=== PATIENT | male | born 1990 | race African-American/Black ===

== ENCOUNTER 2023-09-22 04:27 | Inpatient (IN) | payer OTHER ==
[2023-09-22] VITALS (21 sets, daily range): BP systolic 140–185; BP diastolic 98–130; PULSE 95–112; RESP 13–30; TEMP 98.2; O2SAT 95–98
[~2023-09-22] VITALS: Ht 165.1 cm; Wt 77.1 kg
[2023-09-22 05:41] LABS: CHLORIDE 106 mEq/L (98-107); POTASSIUM 3.8 mEq/L (3.5-5.1); SODIUM 139 mEq/L (136-145)
[2023-09-22 05:42] LABS: CARBON DIOXIDE 24 mEq/L (21-32)
[2023-09-22 05:43] LABS: CALCIUM 9.1 mg/dL (8.7-10.4)
[2023-09-22] MEDS: IPRATROPIUM/ALBUTEROL 0.5-3(2.5)MG/3ML NEB HHN ONE (05:43)
[2023-09-22] MEDS: PREDNISONE 20MG TABLET PO ONE (05:44)
[2023-09-22 05:47] LABS: BASOPHILS % 0.6 % (0.0-2.0); EOSINOPHILS % 0.6 % (0.0-5.0); HEMATOCRIT. 47.7 % (42.0-52.0); MEAN CORPUSCULAR HEMOGLOBIN 28.9 pg (28.0-32.0); MEAN CORPUSCULAR HGB CONC 33.4 g/dL (31.0-37.0); MEAN CORPUSCULAR VOLUME 86.5 fL (80.0-94.0); MEAN PLATELET VOLUME 9.6 fl (7.4-10.4); MONOCYTES % 7.4 % (2.0-8.0); NEUTROPHILS % 79.4 % (40.0-76.0); PLATELET 289 x1000/uL (130-400); RED BLOOD CELL COUNT 5.52 mill/uL (4.7-6.1); WHITE BLOOD COUNT 9.6 x1000/uL (4.5-11.0)
[2023-09-22 05:48] LABS: CREATININE 2.5 mg/dL (0.6-1.3); GLUCOSE 103 mg/dL (70-105); UREA NITROGEN BLOOD 18 mg/dL (9-23)
[2023-09-22 05:50] LABS: TROPONIN I HIGH SENSITIVITY 83 ng/L (3.0-53)
[2023-09-22] MEDS: HYDRALAZINE 20MG/ML VIAL IV ONE (06:48)
[2023-09-22] MEDS: ALBUTEROL (0.083%) 2.5MG/3ML NEB HHN ONE (07:42)
[2023-09-22 09:11] LABS: TROPONIN I HIGH SENSITIVITY 80 ng/L (3.0-53)
[2023-09-22] MEDS: LABETALOL 5MG/ML 4ML INJ IV ONE (09:18)
[2023-09-22] MEDS: NITROGLYCERIN 0.4MG TABLET SL SL ONE (09:36)
[2023-09-22] MEDS ORDERED: NITROGLYCERIN 50MG PREMIX 250 ML IV ONE (10:30)
[2023-09-22] MEDS: NITROGLYCERIN 50MG PREMIX 250 ML IV ONE (10:52)
[2023-09-22] MEDS ORDERED: ONDANSETRON HCL 4MG/2ML INJ IV PRN (15:15)
[2023-09-22] MEDS ORDERED: ACETAMINOPHEN 650MG/20.3ML UDC PO PRN (15:15)
[2023-09-22] MEDS ORDERED: DOCUSATE SODIUM 250MG CAPSULE PO PRN (15:15)
[2023-09-22] MEDS: AMLODIPINE 10MG TABLET PO SCH (16:11)
[2023-09-22] MEDS: IPRATROPIUM/ALBUTEROL 0.5-3(2.5)MG/3ML NEB HHN SCH (16:42)
[2023-09-22] MEDS: NITROGLYCERIN 50MG PREMIX 250 ML IV PRN (18:18)
[2023-09-22] MEDS ORDERED: METOPROLOL SUCCINATE 50MG ER TABLET PO SCH ×2 (22:00)
[2023-09-22] MEDS ORDERED: HYDRALAZINE HCL 100MG TABLET PO SCH (22:00)
[2023-09-23] MEDS ORDERED: PANTOPRAZOLE SODIUM 40 MG/VIAL IV SCH (09:00)
== END 2023-09-22 22:00 | disposition left against medical advice (07) | DRG 141 ==
LOC: ER 04:27 → EDBEDREQ 07:25 → EDBEDREQSVC 10:20 → MICUNO 10:21 → EDBEDREQTM 10:26
PROVIDERS: ADMIT Internal Medicine; ATTEND Internal Medicine
DX: J45.901 Unspecified asthma with (acute) exacerbation (principal); N17.0 Acute kidney failure with tubular necrosis; I16.0 Hypertensive urgency; Z53.29 Procedure and treatment not carried out because of patient's decision for other reasons; Z91.148 Patient's other noncompliance with medication regimen for other reason; I50.9 Heart failure, unspecified; I11.0 Hypertensive heart disease with heart failure
CPT/HCPCS: 36415; 71045; 80048; 84484; 85025; 93005; 94640; 99291; J0360; J3490; J7512

== ENCOUNTER 2024-02-03 20:46 | Inpatient (IN) | payer OTHER ==
[~2024-02-03] VITALS: Ht 167.6 cm; Wt 89.9 kg
[2024-02-03] MEDS: HYDROCODONE/ACETAMINOPHEN 10/325MG TABLET PO ONE (21:41)
[2024-02-03 23:39] LABS: BASOPHILS % 1.1 % (0.0-2.0); EOSINOPHILS % 1.9 % (0.0-5.0); HEMATOCRIT. 41.3 % (42.0-52.0); HEMOGLOBIN. 13.3 g/dL (14.0-18.0); LYMPHOCYTES % 15.7 % (20.0-50.0); MEAN CORPUSCULAR HEMOGLOBIN 27.9 pg (28.0-32.0); MEAN CORPUSCULAR HGB CONC 32.2 g/dL (31.0-37.0); MEAN CORPUSCULAR VOLUME 86.7 fL (80.0-94.0); MEAN PLATELET VOLUME 8.8 fl (7.4-10.4); MONOCYTES % 10.1 % (2.0-8.0); NEUTROPHILS % 71.2 % (40.0-76.0); PLATELET 232 x1000/uL (130-400); RED BLOOD CELL COUNT 4.77 mill/uL (4.7-6.1); RED CELL DISTRIBUTION WIDTH 16.9 % (11.6-14.6); WHITE BLOOD COUNT 8.2 x1000/uL (4.5-11.0)
[2024-02-03 23:40] LABS: CHLORIDE 107 mEq/L (98-107); SODIUM 139 mEq/L (136-145)
[2024-02-03 23:41] LABS: CALCIUM 8.2 mg/dL (8.7-10.4); CARBON DIOXIDE 27 mEq/L (21-32)
[2024-02-03 23:46] LABS: GLUCOSE 116 mg/dL (70-105); UREA NITROGEN BLOOD 35 mg/dL (9-23)
[2024-02-03 23:54] LABS: CREATININE 3.8 mg/dL (0.6-1.3)
[2024-02-03 23:59] LABS: TROPONIN I HIGH SENSITIVITY 63 ng/L (3.0-53)
[2024-02-04] VITALS (7 sets, daily range): BP systolic 145–162; BP diastolic 105–121; PULSE 72–87; RESP 15–25; TEMP 36.33624–36.89184; O2SAT 96–99
[2024-02-04] MEDS: LABETALOL 5MG/ML 4ML INJ IV NR (00:25)
[2024-02-04] MEDS: LEVOFLOXACIN 750MG PREMIX 150 ML IV NR (00:33)
[2024-02-04] MEDS ORDERED: ONDANSETRON HCL 4MG/2ML INJ IV PRN (02:15)
[2024-02-04] MEDS ORDERED: HYDROCODONE/ACETAMINOPHEN 5/325MG TABLET PO PRN (02:15)
[2024-02-04] MEDS ORDERED: ACETAMINOPHEN 325MG TABLET PO PRN (02:15)
[2024-02-04] MEDS ORDERED: NALOXONE HCL 0.4MG/ML VIAL IV PRN (02:45)
[2024-02-04] MEDS: METOPROLOL TARTRATE 50MG TABLET PO SCH (02:51)
[2024-02-04] MEDS: ATORVASTATIN CALCIUM 40MG TABLET PO SCH (02:51)
[2024-02-04] MEDS: AMLODIPINE 10MG TABLET PO SCH (02:54)
[2024-02-04 06:29] LABS: CLARITY URINE CLEAR (CLEAR); COLOR URINE YELLOW (YELLOW); GLUCOSE URINE NEGATIVE (NEGATIVE); KETONES URINE NEGATIVE (NEGATIVE); LEUKOCYTE ESTERASE URINE NEGATIVE (NEGATIVE); NITRITE URINE NEGATIVE (NEGATIVE); OCCULT BLOOD URINE NEGATIVE (NEGATIVE); PH URINE 6.5 (4.5-8.0); PROTEIN URINE 3+ (NEGATIVE); SPECIFIC GRAVITY URINE 1.013 (1.005-1.030); UROBILINOGEN URINE 0.2 E.U./dL (0.2-1.0)
[2024-02-04 06:45] LABS: *AMPHETAMINES SCREEN URINE NEGATIVE (NEGATIVE); *BARBITURATES SCREEN URINE NEGATIVE (NEGATIVE); *BENZODIAZEPINES SCREEN URINE NEGATIVE (NEGATIVE); *COCAINE SCREEN URINE NEGATIVE (NEGATIVE)
[2024-02-04 06:46] LABS: CANNABINOID URINE SCREEN PRESUMPTIVE POSITIVE (NEGATIVE); ECSTASY MDMA SCREEN URINE NEGATIVE (NEGATIVE); METHADONE URINE SCREEN NEGATIVE (NEGATIVE); OPIATES URINE SCREEN PRESUMPTIVE POSITIVE (NEGATIVE); PHENCYCLIDINE URINE SCREEN NEGATIVE (NEGATIVE)
[2024-02-04 06:53] LABS: RBC URINE 0-2 /hpf (0-2); WBC URINE 0-2 /hpf (0-2)
[2024-02-04 06:54] LABS: BACTERIA URINE NONE SEEN; SQUAMOUS EPITHELIAL CELL URINE NONE SEEN /lpf (RARE/1+)
[2024-02-04] MEDS: ENOXAPARIN 30MG/0.3ML SYR SUBCUT SCH (08:11)
[2024-02-04] MEDS: ASPIRIN 81MG TABLET PO SCH (08:12)
[2024-02-04 10:54] LABS: BASOPHILS % 0.8 % (0.0-2.0); EOSINOPHILS % 1.9 % (0.0-5.0); HEMOGLOBIN. 14.8 g/dL (14.0-18.0); LYMPHOCYTES % 16.8 % (20.0-50.0); MEAN CORPUSCULAR HEMOGLOBIN 27.3 pg (28.0-32.0); MEAN CORPUSCULAR HGB CONC 31.4 g/dL (31.0-37.0); MEAN CORPUSCULAR VOLUME 86.8 fL (80.0-94.0); MEAN PLATELET VOLUME 9.3 fl (7.4-10.4); NEUTROPHILS % 69.5 % (40.0-76.0); PLATELET 267 x1000/uL (130-400); RED BLOOD CELL COUNT 5.41 mill/uL (4.7-6.1); RED CELL DISTRIBUTION WIDTH 16.8 % (11.6-14.6); WHITE BLOOD COUNT 7.4 x1000/uL (4.5-11.0)
[2024-02-04 10:59] LABS: POTASSIUM 4.5 mEq/L (3.5-5.1)
[2024-02-04 11:00] LABS: CALCIUM 9.1 mg/dL (8.7-10.4)
[2024-02-04 11:05] LABS: CREATININE 3.7 mg/dL (0.6-1.3)
[2024-02-04] MEDS: LOSARTAN 50 MG TABLET PO SCH (13:00)
[2024-02-04] MEDS: FUROSEMIDE 40MG/4ML VIAL IVP SCH (13:00)
[2024-02-04] MEDS: SPIRONOLACTONE 25MG TABLET PO SCH (13:00)
[2024-02-04 13:18] LABS: HEPATITIS B SURFACE ANTIGEN NEGATIVE (Negative)
[2024-02-04] MEDS: IPRATROPIUM/ALBUTEROL 0.5-3(2.5)MG/3ML NEB HHN PRN (13:20)
[2024-02-04 13:44] LABS: HEPATITIS C AB NON REACTIVE (Neg) (Negative)
[2024-02-04 14:03] LABS: TROPONIN I HIGH SENSITIVITY 55 ng/L (3.0-53)
[2024-02-04] MEDS: CLONIDINE 0.1MG TABLET PO PRN (15:31)
[2024-02-04] MEDS ORDERED: FURO-151 MT (16:12)
[2024-02-04] MEDS ORDERED: CARV25TA47 MT (16:12)
[2024-02-04] MEDS ORDERED: SPIR25TA6 MT (16:12)
[2024-02-04] MEDS ORDERED: LOSA100T33 MT (16:12)
[2024-02-04] MEDS: CARVEDILOL 6.25 MG TABLET PO SCH (20:47)
[2024-02-04 21:39] LABS: TROPONIN I HIGH SENSITIVITY 49 ng/L (3.0-53)
[2024-02-05] VITALS: BP 148/95; PULSE 64; RESP 21; TEMP 36.72516; O2SAT 99
[2024-02-05 04:00] VITALS: BP 159/108; PULSE 74; RESP 28; TEMP 36.83628; O2SAT 92
[2024-02-05 04:09] VITALS: BP_SYST 150; BP_SYST 159; BP_DIAS 108; BP_DIAS 111; PULSE 73; PULSE 80; TEMP 98; O2SAT 98
[2024-02-05 06:46] LABS: POTASSIUM 4.3 mEq/L (3.5-5.1)
[2024-02-05 06:47] LABS: CALCIUM 8.4 mg/dL (8.7-10.4)
[2024-02-05 06:52] LABS: CREATININE 3.7 mg/dL (0.6-1.3)
[2024-02-05 08:00] VITALS: BP 159/121; PULSE 82; RESP 21; TEMP 36.6696; O2SAT 100
[2024-02-05] MEDS: NIFEDIPINE XL 30MG TAB PO SCH (11:51)
[2024-02-05 11:53] VITALS: BP 151/121; PULSE 77; RESP 15; TEMP 37.00296; O2SAT 100
[2024-02-05] MEDS ORDERED: CARVEDILOL 12.5MG TABLET PO SCH (21:00)
[2024-02-06] MEDS ORDERED: LOSARTAN 100 MG TABLET PO SCH (09:00)
== END 2024-02-05 12:58 | disposition home or self-care (01) | DRG 194 ==
LOC: ER 20:46 → 3WST 02-04 00:26 → EDBEDREQTM 02-04 00:29 → EDBEDREQ 02-04 00:29
PROVIDERS: ADMIT Internal Medicine; ATTEND Internal Medicine
DX: I13.0 Hypertensive heart and chronic kidney disease with heart failure and stage 1 through stage 4 chronic kidney disease, or unspecified chronic kidney disease (principal); J96.90 Respiratory failure, unspecified, unspecified whether with hypoxia or hypercapnia; I31.39 Other pericardial effusion (noninflammatory); N17.9 Acute kidney failure, unspecified; I50.23 Acute on chronic systolic (congestive) heart failure; I42.0 Dilated cardiomyopathy; N18.4 Chronic kidney disease, stage 4 (severe); E78.5 Hyperlipidemia, unspecified; I16.0 Hypertensive urgency; J45.909 Unspecified asthma, uncomplicated; Z82.49 Family history of ischemic heart disease and other diseases of the circulatory system
CPT/HCPCS: 36415; 71045; 71250; 76770; 80048; 80061; 80305; 81003; 83036; 83880; 84484; 85025; 86705; 87340; 93005; 93306; 94640; 99291; C1893; J1650; J1940; J1956